=== PATIENT | female | born 1945 | race Caucasian/White ===

== ENCOUNTER 2018-04-06 08:52 | Day surgery (SDC) | payer MEDICARE ==
[2018-04-04 09:01] LABS: BASOPHILS % (AUTO) 1.4 % (0.0-5.0); EOSINOPHILS % (AUTO) 3.1 % (0.0-8.0); HEMATOCRIT 40.8 % (36-48); LYMPHOCYTES % (AUTO) 18.3 % (21.0-51.0); MEAN CORPUSCULAR HEMOGLOBIN 31.7 pg (27.0-33.0); MEAN CORPUSCULAR HGB CONC 33.3 g/dL (32.0-36.0); MEAN CORPUSCULAR VOLUME 95.3 fL (79-99); MONOCYTES % (AUTO) 8.1 % (3.0-13.0); NEUTROPHILS % (AUTO) 69.1 % (40.0-77.0); NUCLEATED RED BLOOD CELLS 0.1 % (0.0-0.19); PLATELET COUNT (AUTO) 230 K/uL (130-400); RED BLOOD CELL COUNT(AUTO) 4.28 MIL/uL (4.00-5.50); RED CELL DISTRIBUTION WIDTH 13.9 % (11.0-15.5); WHITE BLOOD COUNT (AUTO) 6.3 K/uL (4.8-10.8)
[2018-04-04 09:15] VITALS: BP 136/79
[2018-04-04 09:22] LABS: CREATININE 1.3 mg/dL (0.5-1.5); INR 0.99 (0.85-1.15); PARTIAL THROMBOPLASTIN TIME 28.1 SEC (26.3-35.5); POTASSIUM 4.5 mmol/L (3.5-5.1); PROTHROMBIN TIME 10.4 SEC (9.6-11.6)
[2018-04-06] VITALS (8 sets, daily range): BP systolic 128–148; BP diastolic 66–80
[~2018-04-06] VITALS: Ht 157.5 cm; Wt 86.6 kg
[~2018-04-06 08:52] MED LIST: APIX5TAB PO; ATOR20TA65 PO; METO-408 PO; OMEP10SU2 PO; PROP425C6 PO
[2018-04-06] MEDS ORDERED: PROPOFOL 10 MG/ML 20ML VIAL IV ONE (10:40)
[2018-04-06] MEDS ORDERED: SUCCINYLCHOLINE CHLORIDE 20 MG/ML 10 ML VIAL ONE (10:40)
[2018-04-06] MEDS ORDERED: SODIUM CHLORIDE 0.9% 1000ML 1,000 ML IV ONE (12:06)
== END 2018-04-06 11:50 | disposition home or self-care (01) ==
LOC: DAH 08:52
PROVIDERS: ATTEND Internal Medicine Cardiovascular Disease
DX: I48.92 Unspecified atrial flutter (principal); Z86.73 Personal history of transient ischemic attack (TIA), and cerebral infarction without residual deficits; I48.0 Paroxysmal atrial fibrillation; Z79.01 Long term (current) use of anticoagulants; Z79.899 Other long term (current) drug therapy; I10 Essential (primary) hypertension; E78.5 Hyperlipidemia, unspecified; E66.9 Obesity, unspecified; Z98.890 Other specified postprocedural states; Z68.35 Body mass index [BMI] 35.0-35.9, adult
CPT/HCPCS: 36415; 80048; 85025; 85610; 85730; 92960; 93005 ×2; A4606; J0330; J2704; J7030

== ENCOUNTER 2022-06-17 06:21 | Day surgery (SDC) | payer MEDICARE ==
[2022-06-15 11:38] LABS: BASOPHILS % (AUTO) 0.6 % (0.0-5.0); EOSINOPHILS % (AUTO) 1.9 % (0.0-8.0); HEMATOCRIT 39.9 % (36-48); LYMPHOCYTES % (AUTO) 15.6 % (21.0-51.0); MEAN CORPUSCULAR HEMOGLOBIN 30.4 pg (27.0-33.0); MEAN CORPUSCULAR HGB CONC 32.3 g/dL (32.0-36.0); MEAN CORPUSCULAR VOLUME 93.9 fL (79-99); MONOCYTES % (AUTO) 7.7 % (3.0-13.0); NEUTROPHILS % (AUTO) 73.8 % (40.0-77.0); PLATELET COUNT (AUTO) 254 K/uL (130-400); RED BLOOD CELL COUNT(AUTO) 4.25 MIL/uL (4.00-5.50); RED CELL DISTRIBUTION WIDTH 13.6 % (11.0-15.5); WHITE BLOOD COUNT (AUTO) 8.3 K/uL (4.8-10.8)
[2022-06-15 11:48] LABS: CREATININE 1.3 mg/dL (0.5-1.5); POTASSIUM 4.3 mmol/L (3.5-5.1)
[2022-06-15 11:50] LABS: INR 0.98 (0.85-1.15); PROTHROMBIN TIME 10.7 SEC (9.6-11.6)
[2022-06-15 11:52] LABS: PARTIAL THROMBOPLASTIN TIME 26.8 SEC (26.3-35.5)
[2022-06-15 12:39] VITALS: BP 204/84
[~2022-06-17] VITALS: Ht 154.9 cm; Wt 83.2 kg
[2022-06-17] VITALS (10 sets, daily range): BP systolic 106–166; BP diastolic 58–83
[~2022-06-17 06:21] MED LIST changes: +ACET-2743 PO; +FURO40TA5 PO; -METO-408 PO; +MVIT PO; -OMEP10SU2 PO; -PROP425C6 PO; +SPIR25TA6 PO; +ZOLE5INF IV
[2022-06-17] MEDS ORDERED: 0.9%NACL 1000ML 1,000 ML IV ONE (07:43)
[2022-06-17] MEDS ORDERED: LIDOCAINE HCL 1% MDV 50ML VIAL ONE (09:48)
[2022-06-17] MEDS ORDERED: MIDAZOLAM HCL 1 MG/ML 2ML VIAL ONE ×3 (09:49→10:38)
[2022-06-17] MEDS ORDERED: MEPERIDINE-PF 25 MG/ML SYG ONE ×3 (09:49→10:37)
[2022-06-17] MEDS ORDERED: BUPIVACAINE/PF 0.25% 10ML VIAL IJ ONE (09:49)
[2022-06-17] MEDS ORDERED: IOHEXOL-350 50ML VIAL IV ONE (09:49)
[2022-06-17] MEDS ORDERED: CEFAZOLIN SODIUM 1 GM VIAL ONE ×2 (09:50→15:40)
[2022-06-17] MEDS ORDERED: OCTYL 2-CYANOACRYLATE 1 EACH TP ONE (10:56)
[2022-06-17] MEDS ORDERED: ACETAMINOPHEN WITH CODEINE 1 TAB TAB PO PRN ×2 (11:30)
[2022-06-17] MEDS ORDERED: ONDANSETRON 4MG INJ IV PRN (11:30)
[2022-06-17] MEDS ORDERED: TEMAZEPAM 30 MG CAP PO PRN (11:30)
[2022-06-17] MEDS ORDERED: METO50TA9 PO (11:54)
[2022-06-17] MEDS ORDERED: DOXY100T2 PO (11:54)
[2022-06-17] MEDS ORDERED: CEFAZOLIN SODIUM 1 GM VIAL IVPB SCH (16:00)
== END 2022-06-17 16:59 | disposition home or self-care (01) ==
LOC: DAH 06:21
PROVIDERS: ATTEND Internal Medicine Cardiovascular Disease
DX: I49.5 Sick sinus syndrome (principal); Z45.09 Encounter for adjustment and management of other cardiac device; I45.10 Unspecified right bundle-branch block; I44.30 Unspecified atrioventricular block; I48.19 Other persistent atrial fibrillation; I10 Essential (primary) hypertension; E78.5 Hyperlipidemia, unspecified; E66.9 Obesity, unspecified; Z98.890 Other specified postprocedural states; Z98.84 Bariatric surgery status; Z68.35 Body mass index [BMI] 35.0-35.9, adult; Z86.73 Personal history of transient ischemic attack (TIA), and cerebral infarction without residual deficits; Z79.899 Other long term (current) drug therapy; Z79.01 Long term (current) use of anticoagulants
CPT/HCPCS: 80048; 85025; 85610; 85730; 36415; 93005 ×2; 33207; 33286; 71045; C1769; C1786; C1898; C1894; J0690 ×2; J7030; J2250 ×3; J3490 ×2; J2175 ×3; Q9967; A4215; A4335; A4222; A4221; A4663; A4216; A4606; A4223 ×3; A4554; 99156; 99157